=== PATIENT | male | born 1965 | race Caucasian/White ===

== ENCOUNTER 2022-03-18 16:41 | Inpatient (IN) ==
[2022-03-18] MEDS ORDERED: ACETAMINOPHEN 325 MG TABLET PO ONE (17:06)
[2022-03-18 18:29] LABS: Basophils % 0.1 % (0.0-0.8); Eosinophils % 0.2 % (0.00-10.9); Hematocrit 39.3 VOL% (42.0-52.0); Hemoglobin 14.4 GM/DL (14.0-18.0); Immature Granulocytes % 0.6 %; Immature Granulocytes Absolute 0.06 #; Lymphocytes # 0.4 10*3/uL (1.4-4.0); Lymphocytes % 3.9 % (21.2-54.2); Mean Corpuscular HGB Conc 36.6 GM/DL (32-36); Mean Corpuscular Volume 93.8 FL (87-102); Mean Platelet Volume 9.6 FL (9.6-12.0); Neutrophils % 85.2 % (38.7-73.9); Platelet Count 216 T/CUMM (130-400); Red Blood Count 4.19 MC/CUMM (3.8-5.5); Red Cell Distribution Width 11.1 % (9.3-17.3); White Blood Count 10.2 T/CUMM (4-12)
[2022-03-18] MEDS: PIPERACILLIN/TAZOBACTAM 3,375 MG in SODIUM CHLORIDE 0.9% 100 ML IV SCH (18:49)
[2022-03-18 18:55] LABS: Albumin 3.2 G/DL (3.4-5.0); Bilirubin,Total 7.2 MG/DL (0.20-1.00); Calcium 9.2 MG/DL (8.5-10.1); Osmolality,Calculated 264.7 MOS/KG (273-304); Potassium 3.9 MMOL/L (3.5-5.1); Total Protein 7.6 G/DL (6.4-8.2)
[2022-03-18 19:14] LABS: Band Neutrophils 7 % (0-10); Lymphocytes 2 % (20-55); Total Cells Counted 100
[2022-03-18 19:15] LABS: Platelet Estimate Normal; Reactive Lymphocytes Slight
[2022-03-18] MEDS ORDERED: KETOROLAC 30 MG/1 ML VIAL IV STA (19:16)
[2022-03-18] MEDS ORDERED: NICOTINE 21 MG/24 HR PATCH TRANSDERM PRN (19:47)
[2022-03-18] MEDS ORDERED: ACETAMINOPHEN 325 MG TABLET PO PRN (19:47)
[2022-03-18] MEDS ORDERED: MORPHINE 2 MG/1 ML SYRINGE IV PRN (19:47)
[2022-03-18] MEDS: DEXTROSE 5% NACL 0.45% 1,000 ML IV SCH (23:03)
[2022-03-19 04:48] LABS: Basophils % 0.2 % (0.0-0.8); Eosinophils % 0.1 % (0.00-10.9); Hematocrit 39.1 VOL% (42.0-52.0); Hemoglobin 13.8 GM/DL (14.0-18.0); Immature Granulocytes % 0.7 %; Immature Granulocytes Absolute 0.06 #; Lymphocytes # 0.5 10*3/uL (1.4-4.0); Lymphocytes % 5.8 % (21.2-54.2); Mean Corpuscular HGB Conc 35.3 GM/DL (32-36); Mean Corpuscular Volume 96.1 FL (87-102); Mean Platelet Volume 9.6 FL (9.6-12.0); Monocytes # 1.1 10*3/uL (0.11-0.8); Monocytes % 12.9 % (1.7-12.7); Neutrophils % 80.3 % (38.7-73.9); Platelet Count 195 T/CUMM (130-400); Red Blood Count 4.07 MC/CUMM (3.8-5.5); White Blood Count 8.2 T/CUMM (4-12)
[2022-03-19] MEDS: PIPERACILLIN/TAZOBACTAM 3,375 MG in SODIUM CHLORIDE 0.9% 100 ML IV SCH ×3 (05:15→18:10)
[2022-03-19 06:09] LABS: Albumin 2.9 G/DL (3.4-5.0); Bilirubin,Total 7.8 MG/DL (0.20-1.00); Calcium 8.8 MG/DL (8.5-10.1); Potassium 3.7 MMOL/L (3.5-5.1); Thyroid Stimulating Hormone 0.457 uIU/ml (0.358-3.74); Total Protein 7.2 G/DL (6.4-8.2)
[2022-03-19 06:41] LABS: Hepatitis B Core IgM Quant < 0.05 Index; Hepatitis B Surface Ag Quant < 0.10 Index; Hepatitis B Surface Ag Result Non-Reactive (NonReactive); Hepatitis C Virus Ab Quant < 0.02 Index; Hepatitis C Virus Ab Result Non-Reactive (NonReactive)
[2022-03-19] MEDS ORDERED: KETOROLAC 30 MG/1 ML VIAL IV PRN (10:13)
[2022-03-19] MEDS: DEXTROSE 5% NACL 0.45% 1,000 ML IV SCH ×2 (10:19→23:16)
[2022-03-19] MEDS: PANTOPRAZOLE 40 MG VIAL IV SCH (10:40)
[2022-03-19] MEDS: HYDROmorphone 1 MG/1 ML SYRINGE IV PRN ×3 (10:41→20:11)
[2022-03-19] MEDS: METOPROLOL TARTRATE 5 MG/5 ML VIAL IV SCH ×2 (13:19→18:10)
[2022-03-20] MEDS: METOPROLOL TARTRATE 5 MG/5 ML VIAL IV SCH ×4 (00:21→17:48)
[2022-03-20] MEDS: PIPERACILLIN/TAZOBACTAM 3,375 MG in SODIUM CHLORIDE 0.9% 100 ML IV SCH ×3 (01:58→17:47)
[2022-03-20 05:30] LABS: Basophils % 0.6 % (0.0-0.8); Eosinophils # 0.2 10*3/uL (0.0-0.87); Eosinophils % 3.7 % (0.00-10.9); Hematocrit 35.7 VOL% (42.0-52.0); Hemoglobin 12.6 GM/DL (14.0-18.0); Immature Granulocytes % 1.2 %; Immature Granulocytes Absolute 0.06 #; Lymphocytes # 0.5 10*3/uL (1.4-4.0); Lymphocytes % 9.2 % (21.2-54.2); Mean Corpuscular HGB Conc 35.3 GM/DL (32-36); Mean Corpuscular Volume 96.2 FL (87-102); Mean Platelet Volume 9.8 FL (9.6-12.0); Monocytes # 0.7 10*3/uL (0.11-0.8); Monocytes % 13.2 % (1.7-12.7); Neutrophils % 72.1 % (38.7-73.9); Platelet Count 193 T/CUMM (130-400); Red Blood Count 3.71 MC/CUMM (3.8-5.5); White Blood Count 5.1 T/CUMM (4-12)
[2022-03-20 05:41] LABS: INR 1.1; PT Patient Result 11.7 SECS (10.1-12.1)
[2022-03-20 05:54] LABS: Albumin 2.6 G/DL (3.4-5.0); Bilirubin,Total 5.6 MG/DL (0.20-1.00); Osmolality,Calculated 270.1 MOS/KG (273-304); Potassium 3.2 MMOL/L (3.5-5.1); Total Protein 6.6 G/DL (6.4-8.2)
[2022-03-20] MEDS ORDERED: INDOMETHACIN SUPP 50 MG SUPP RECTAL ONE (08:00)
[2022-03-20] MEDS ORDERED: LACTATED RINGERS 1,000 ML IV SCH (10:30)
[2022-03-20] MEDS: PANTOPRAZOLE 40 MG VIAL IV SCH (10:30)
[2022-03-20] MEDS ORDERED: THIAMINE INJ 100 MG, FOLIC ACID INJ 1 MG, MULTIVITAMIN INJ 10 ML in SODIUM CHLORIDE 0.9... IV SCH (10:30)
[2022-03-20] MEDS: ONDANSETRON 4 MG/2 ML VIAL IV PRN ×2 (10:36→13:17)
[2022-03-20] MEDS: HYDROmorphone 1 MG/1 ML SYRINGE IV PRN ×2 (10:36→20:36)
[2022-03-20] MEDS ORDERED: LORazepam 2 MG/1 ML VIAL IV PRN (10:43)
[2022-03-20] MEDS: LACTATED RINGERS 1,000 ML IV SCH (11:41)
[2022-03-20] MEDS: [UNRECOGNIZED DRUG - OTHER] IV SCH (13:49)
[2022-03-20] MEDS: FOLIC ACID IV SCH (13:49)
[2022-03-20] MEDS: LACTATED RINGERS MULTIVITAMIN IV SCH (13:49)
[2022-03-20] MEDS: DEXTROSE 5% NACL 0.45% 1,000 ML IV SCH (13:56)
[2022-03-20] MEDS: chlordiazePOXIDE 25 MG CAPSULE PO SCH ×2 (14:10→20:36)
[2022-03-20] MEDS ORDERED: POTASSIUM CHLORIDE 20 MEQ TABLET PO ONE (15:59)
[2022-03-20] MEDS: THIAMINE 100 MG TABLET PO SCH (20:36)
[2022-03-21] MEDS: METOPROLOL TARTRATE 5 MG/5 ML VIAL IV SCH ×5 (00:12→23:33)
[2022-03-21] MEDS: [UNRECOGNIZED DRUG - OTHER] IV SCH ×4 (00:39→22:42)
[2022-03-21] MEDS: FOLIC ACID IV SCH ×4 (00:39→22:42)
[2022-03-21] MEDS: LACTATED RINGERS MULTIVITAMIN IV SCH ×4 (00:39→22:42)
[2022-03-21] MEDS: PIPERACILLIN/TAZOBACTAM 3,375 MG in SODIUM CHLORIDE 0.9% 100 ML IV SCH ×3 (01:39→17:39)
[2022-03-21 05:42] LABS: Basophils % 0.8 % (0.0-0.8); Eosinophils # 0.2 10*3/uL (0.0-0.87); Hematocrit 34.1 VOL% (42.0-52.0); Immature Granulocytes % 0.5 %; Immature Granulocytes Absolute 0.02 #; Lymphocytes # 0.6 10*3/uL (1.4-4.0); Mean Corpuscular HGB Conc 35.2 GM/DL (32-36); Monocytes # 0.6 10*3/uL (0.11-0.8); Monocytes % 13.8 % (1.7-12.7); Neutrophils % 65.9 % (38.7-73.9); Platelet Count 191 T/CUMM (130-400); Red Blood Count 3.48 MC/CUMM (3.8-5.5); Red Cell Distribution Width 11.4 % (9.3-17.3)
[2022-03-21 05:58] LABS: Albumin 2.5 G/DL (3.4-5.0); Bilirubin,Total 4.7 MG/DL (0.20-1.00); Calcium 8.9 MG/DL (8.5-10.1); Osmolality,Calculated 274.5 MOS/KG (273-304); Potassium 3.5 MMOL/L (3.5-5.1); Total Protein 6.2 G/DL (6.4-8.2)
[2022-03-21] MEDS: chlordiazePOXIDE 25 MG CAPSULE PO SCH ×3 (09:13→20:59)
[2022-03-21] MEDS: THIAMINE 100 MG TABLET PO SCH ×2 (09:14→20:59)
[2022-03-21] MEDS: PANTOPRAZOLE 40 MG VIAL IV SCH (09:14)
[2022-03-21] MEDS ORDERED: INDOCYANINE GREEN 25 MG VIAL IV ONE (09:58)
[2022-03-21] MEDS ORDERED: BUPIVACAINE MPF 0.25% 10 ML VIAL ONE (12:30)
[2022-03-21] MEDS ORDERED: LIDOCAINE 1%/EPI INJ 20 ML VIAL ONE (12:30)
[2022-03-21] MEDS ORDERED: TISSUE ADHESIVE 1 EACH APPLICATOR TOP ONE (12:31)
[2022-03-21] MEDS ORDERED: LIDOCAINE 2% 5 ML VIAL ONE (12:50)
[2022-03-21] MEDS ORDERED: ROCURONIUM 50 MG/5 ML VIAL IV ONE (12:50)
[2022-03-21] MEDS ORDERED: propofoL 200 MG/20 ML VIAL IV ONE ×2 (12:50→13:49)
[2022-03-21] MEDS ORDERED: fentaNYL 100 MCG/2 ML VIAL ONE (12:50)
[2022-03-21] MEDS ORDERED: SEVOFLURANE 1 UNIT/15 MINUTE INH ONE (12:50)
[2022-03-21] MEDS ORDERED: ONDANSETRON 4 MG/2 ML VIAL ONE (12:50)
[2022-03-21] MEDS ORDERED: MIDAZOLAM 2 MG/2 ML VIAL ONE (12:50)
[2022-03-21] MEDS: LACTATED RINGERS 1,000 ML IV SCH ×2 (13:02→14:41)
[2022-03-21] MEDS ORDERED: LACTATED RINGERS 1,000 ML IV SCH (13:30)
[2022-03-21] MEDS ORDERED: METOPROLOL TARTRATE 5 MG/5 ML VIAL IV ONE (13:34)
[2022-03-21] MEDS ORDERED: NEOSTIGMINE 10 MG/10 ML VIAL ONE (14:17)
[2022-03-21] MEDS ORDERED: GLYCOPYRROLATE 0.4 MG/2 ML VIAL ONE (14:17)
[2022-03-21] MEDS: HYDROmorphone 1 MG/1 ML SYRINGE IV PRN ×5 (14:48→19:33)
[2022-03-21] MEDS ORDERED: ONDANSETRON 4 MG/2 ML VIAL IV PRN (14:50)
[2022-03-21] MEDS ORDERED: KETOROLAC 15 MG/1 ML VIAL IV PRN (15:11)
[2022-03-21] MEDS: ONDANSETRON 4 MG/2 ML VIAL IV PRN (19:32)
[2022-03-22] MEDS: PIPERACILLIN/TAZOBACTAM 3,375 MG in SODIUM CHLORIDE 0.9% 100 ML IV SCH ×2 (01:20→09:26)
[2022-03-22] MEDS: HYDROmorphone 1 MG/1 ML SYRINGE IV PRN ×3 (01:23→09:30)
[2022-03-22] MEDS: FOLIC ACID IV SCH (05:06)
[2022-03-22] MEDS: LACTATED RINGERS MULTIVITAMIN IV SCH (05:06)
[2022-03-22] MEDS: [UNRECOGNIZED DRUG - OTHER] IV SCH (05:06)
[2022-03-22 05:34] LABS: Basophils % 0.6 % (0.0-0.8); Eosinophils # 0.1 10*3/uL (0.0-0.87); Eosinophils % 2.2 % (0.00-10.9); Hematocrit 35.9 VOL% (42.0-52.0); Hemoglobin 12.4 GM/DL (14.0-18.0); Immature Granulocytes Absolute 0.05 #; Lymphocytes # 0.9 10*3/uL (1.4-4.0); Lymphocytes % 17.1 % (21.2-54.2); Mean Corpuscular HGB Conc 34.5 GM/DL (32-36); Mean Corpuscular Volume 97.8 FL (87-102); Mean Platelet Volume 9.8 FL (9.6-12.0); Monocytes # 0.6 10*3/uL (0.11-0.8); Monocytes % 12.4 % (1.7-12.7); Neutrophils % 66.7 % (38.7-73.9); Platelet Count 222 T/CUMM (130-400); Red Blood Count 3.67 MC/CUMM (3.8-5.5); Red Cell Distribution Width 11.3 % (9.3-17.3); White Blood Count 5.1 T/CUMM (4-12)
[2022-03-22 05:49] LABS: Albumin 2.3 G/DL (3.4-5.0); Bilirubin,Total 4.4 MG/DL (0.20-1.00); Calcium 8.6 MG/DL (8.5-10.1); Osmolality,Calculated 271.8 MOS/KG (273-304); Potassium 3.8 MMOL/L (3.5-5.1); Total Protein 6.2 G/DL (6.4-8.2)
[2022-03-22] MEDS: METOPROLOL TARTRATE 5 MG/5 ML VIAL IV SCH (05:50)
[2022-03-22] MEDS: THIAMINE 100 MG TABLET PO SCH (09:24)
[2022-03-22] MEDS: chlordiazePOXIDE 25 MG CAPSULE PO SCH (09:24)
[2022-03-22] MEDS: PANTOPRAZOLE 40 MG VIAL IV SCH (09:25)
[2022-03-22] MEDS ORDERED: oxyCODONE/ACETAMINOPHEN 5-325 MG TABLET PO PRN (10:16)
[2022-03-22 11:16] VITALS: BP 143/84
[2022-03-22] MEDS ORDERED: METOPROLOL SUCCINATE XL 50 MG TABLET PO SCH (21:00)
== END 2022-03-22 14:51 | disposition home or self-care (01) | DRG 406 ==
LOC: N.ED 16:41 → N.EDINP 19:40 → N.3E 03-19 11:43
PROVIDERS: ADMIT Hospitalist; ATTEND Hospitalist
PROC: ERCPWSP (ICD-10-PCS; 2022-03-20 13:05)